=== PATIENT | female | born 1960 | race Hispanic/Latino ===

== ENCOUNTER 2019-04-22 05:22 | Day surgery (SDC) | payer BC ==
[~2019-04-22] VITALS: Ht 157.5 cm; Wt 78.5 kg
[~2019-04-22 05:22] MED LIST: ASPI-555 PO; DILT120T PO; ERGO500014 PO; EZET10TA48 PO; FENO54TA6 PO; ISOS30TA11 PO; METF-444 PO; PRAV20TA4 PO
[2019-04-22] MEDS ORDERED: SODIUM CHLORIDE 0.9% 1000ML 1,000 ML IV ONE (05:45)
[2019-04-22 06:11] VITALS: BP 129/77
[2019-04-22] MEDS ORDERED: PROPOFOL 10 MG/ML 20ML VIAL IV ONE (06:33)
[2019-04-22] MEDS ORDERED: LIDOCAINE HCL 1% 20 ML VIAL ONE (06:33)
[2019-04-22] MEDS ORDERED: PHENYLEPHRINE HCL 10 MG/ML 1ML VIAL IV ONE (07:26)
[2019-04-22 07:40] VITALS: BP 120/62
[2019-04-22 07:45] VITALS: BP 105/75
[2019-04-22 07:50] VITALS: BP 120/71
[2019-04-22 07:53] VITALS: BP 111/73
== END 2019-04-22 08:03 | disposition home or self-care (01) ==
LOC: DAH 05:22 → ENDO 05:22
PROVIDERS: ATTEND Internal Medicine
DX: K63.5 Polyp of colon (principal); K31.89 Other diseases of stomach and duodenum; K57.30 Diverticulosis of large intestine without perforation or abscess without bleeding; K64.0 First degree hemorrhoids; I10 Essential (primary) hypertension; E78.5 Hyperlipidemia, unspecified; E11.9 Type 2 diabetes mellitus without complications; Z79.82 Long term (current) use of aspirin; Z79.899 Other long term (current) drug therapy; Z90.710 Acquired absence of both cervix and uterus; Z98.49 Cataract extraction status, unspecified eye; Z72.89 Other problems related to lifestyle; Z82.49 Family history of ischemic heart disease and other diseases of the circulatory system; Z83.3 Family history of diabetes mellitus; Z82.5 Family history of asthma and other chronic lower respiratory diseases
CPT/HCPCS: 43239; 45380; 82948 ×2; A4606; J2370; J2704; J7030

== ENCOUNTER 2022-10-29 21:24 | Emergency (ER) | payer BC ==
[~2022-10-29] VITALS: Ht 157.5 cm; Wt 85.3 kg
[~2022-10-29 21:24] MED LIST changes: -ASPI-555 PO; +ASPI-556 PO; -FENO54TA6 PO
[2022-10-29] MEDS ORDERED: MORPHINE 4 MG SYG IM ONE (22:00)
[2022-10-29] MEDS ORDERED: ORPHENADRINE CITRATE 30 MG/ML ML IM ONE (22:00)
[2022-10-29] MEDS ORDERED: ONDANSETRON ODT 4MG TAB SL ONE (22:00)
[2022-10-29] MEDS ORDERED: NAPR-1180 PO (22:43)
[2022-10-29] MEDS ORDERED: OXYC-38 PO (22:43)
[2022-10-29 22:50] VITALS: BP 145/78
[2022-10-29] MEDS ORDERED: KETOROLAC 15MG/ML VIAL (15MG/ML) ONE (23:00)
== END 2022-10-29 23:01 | disposition home or self-care (01) ==
LOC: EDH 21:24
DX: M43.6 Torticollis (principal); G44.209 Tension-type headache, unspecified, not intractable; E11.9 Type 2 diabetes mellitus without complications; E78.00 Pure hypercholesterolemia, unspecified; I10 Essential (primary) hypertension; Z79.82 Long term (current) use of aspirin; Z79.84 Long term (current) use of oral hypoglycemic drugs; Z79.899 Other long term (current) drug therapy
CPT/HCPCS: 99284; 96372 ×2; J2270; J1885; J2360